=== PATIENT | male | born 1975 | race Caucasian/White ===

== ENCOUNTER 2024-02-20 05:35 | Emergency (ER) | payer OTHER ==
[2024-02-20] MEDS ORDERED: ACETAMINOPHEN 500 MG TAB ONE (06:07)
[2024-02-20] MEDS ORDERED: NA CHLORIDE 0.9% 1,000 ML ONE ×3 (06:08→07:29)
[2024-02-20] MEDS ORDERED: IBUPROFEN 400 MG TAB ONE (06:08)
[2024-02-20] MEDS ORDERED: METOCLOPRAMIDE 10 MG/2mL INJ ONE (06:22)
[2024-02-20 06:31] LABS: Absolute Lymphocytes (CBC) 0.4 K/uL (0.7-4.9); Absolute Monocytes 1.1 K/uL (0.1-1.3); Absolute Neutrophil 20.6 K/uL (1.8-8.0); Basophils % 0.2 % (0-1.3); Hemoglobin 18.2 g/dL (13.6-17.9); Lymphocytes % 1.8 % (15.3-44.8); MCH 30.7 pg (27.0-35.0); MCHC 34.3 g/dL (32.0-36.0); MCV 89.5 fL (80-100); MPV 7.8 fL (7.6-11.3); Monocytes % 4.9 % (3.3-12.3); Neutrophils % 93.1 % (41.7-73.7); Platelets 306 thou/uL (152-406); RBC Red Blood Cell Count 5.93 M/uL (4.33-5.43); Red Cell Distribution Width 13.6 % (12.1-15.2)
[2024-02-20 06:34] LABS: SARS-CoV-2 Antigen CONTROL BLUE LINE VIS/BG OK; SARS-CoV-2 Antigen Rapid Res Negative (Negative)
[2024-02-20 06:39] LABS: Albumin 3.6 g/dL (3.4-5.0); Albumin/Globulin Ratio 0.9 (1.1-1.8); Bilirubin Total 3.4 mg/dL (0.2-1.0); Globulin 3.8 g/dL (2.3-3.5); Protein, Total 7.4 g/dL (6.4-8.2)
--- NOTE | 2024-02-20 06:40 | RAD REPORT ---
EXAM: XR Chest, 1 View CLINICAL HISTORY: The patient is 48 years old and is Male; Shortness of breath. TECHNIQUE: Single view of the chest. COMPARISON: No relevant prior studies available. FINDINGS: Lungs: No pulmonary vascular congestion or consolidation. Pleural space: Unremarkable. No pneumothorax. Heart: Unremarkable. No cardiomegaly. Mediastinum: Unremarkable. Bones/joints: No acute fracture. Upper abdomen: No free air in the visualized upper abdomen. IMPRESSION: No acute cardiopulmonary process identified. Electronically signed by: Bisi Diana MD 02/20/2024 06:37 AM [facility] [place] Due to temporary technical issues with the [employer] reporting system, reports are being bernice d by the in-house radiologist without review as a courtesy to ensure prompt reporting the interpreting radiologist is fully responsible for the content of the report. Transcribed Date/Time: 02/20/2024 6:39 AM
--- NOTE | 2024-02-20 07:07 | ER ---
Nurse's Notes [facility] Name: Efra Castro Age: 48 yrs Sex: Male : 1975 Arrival Date: 02/20/2024 Time: 05:35 Bed 6 Private MD: Diagnosis: Acute bacterial peritonitis, sepsis;Severe sepsis without septic shock Presentation: 02/19 05:54 Chief complaint: Patient states: NAUSEA, DIARRHEA, FEVER AND ABDOMINAL PAIN BEGINNING dd2 LAST NIGHT. Coronavirus screen: diarrhea, fever, nausea, shortness of breath. Ebola Screen: No symptoms or risks identified at this time. Initial Sepsis Screen: Does the patient meet any 2 criteria? Temp <36.0*C (96.8*F)) or > 38.3*C (100.9*F). HR > 90 bpm. Yes Does the patient have a suspected source of infection? No. Patient's initial sepsis screen is negative. Risk Assessment: Do you want to hurt yourself or someone else? Patient reports no desire to harm self or others. Onset of symptoms is unknown. Care prior to arrival: Medication(s) given: zofran 4 mg. 05:54 Method Of Arrival: Ambulatory dd2 05:54 Acuity: PEG 3 dd2 Triage Assessment: 06:00 General: Appears uncomfortable, Behavior is calm, cooperative, appropriate for age. dd2 Pain: Complains of pain in epigastric area Pain does not radiate. Pain currently is 8 out of 10 on a pain scale. Pain began 1 day ago. EENT: No deficits noted. No signs and/or symptoms were reported regarding the EENT system. Neuro: Pedersen Agitation-Sedation Scale (RASS): 0 - Alert and Calm Level of Consciousness is awake, alert, obeys commands, Oriented to person, place, time, situation, Appropriate for age. Cardiovascular: Patient's skin is warm and dry. Respiratory: Reports shortness of breath at rest on exertion Airway is patent Respiratory effort is even, unlabored, Respiratory pattern is regular, symmetrical, Breath sounds are clear bilaterally. GI: Abdomen is non-distended, Abd is soft X 4 quads Abdomen is tender to palpation in epigastric area Reports diarrhea, epigastric pain, nausea. : No deficits noted. No signs and/or symptoms were reported regarding the genitourinary system. Derm: No deficits noted. No signs and/or symptoms reported regarding the dermatologic system. Musculoskeletal: No deficits noted. No signs and/or symptoms reported regarding the musculoskeletal system. Circulation, motion, and sensation intact. Range of motion: intact in all extremities. Historical: - Allergies: 06:00 No Known Allergies; dd2 - PMHx: 06:00 ADHD; dd2 - PSHx: 06:00 None; dd2 - Immunization history:: Adult Immunizations not up to date, Client reports receiving the 2nd dose of the Covid vaccine, Client reports receiving the 1st dose of the Covid vaccine, Flu vaccine is not up to date. It has been more than one year since last vaccine. - Infectious Disease History:: Denies. - Social history:: Smoking status: Patient denies any tobacco usage or history of. - Family history:: not pertinent. Screenin:02 [facility] ED Fall Risk Assessment (Adult) History of falling in the last 3 months, dd2 including since admission No falls in past 3 months (0 pts) Confusion or Disorientation No (0 pts) Intoxicated or Sedated No (0 pts) Impaired Gait No (0 pts) Mobility Assist Device Used No (0 pt) Altered Elimination No (0 pt) Score/Fall Risk Level 0 - 2 = Low Risk Oriented to surroundings, Maintained a safe environment, Educated pt \T\ family on fall prevention, incl call for assistance when getting out of bed, Assessed \T\ reinforced patient's understanding of fall precautions, Hourly rounding (assess needs \T\ fall precautionary measures) done. Abuse screen: Denies threats or abuse. Nutritional screening: No deficits noted. Tuberculosis screening: No symptoms or risk factors identified. Assessment: 06:02 Reassessment: SEE TRIAGE ASSESSMENT FOR FULL ASSESSMENT. dd2 07:00 General: Appears in no apparent distress. Behavior is calm, cooperative. Pain: rs5 Complains of pain in abdomen Pain currently is 3 out of 10 on a pain scale. Quality of pain is described as aching, Is continuous. Neuro: Level of Consciousness is awake, alert, obeys commands, Oriented to person, place, time, situation. Cardiovascular: Patient's skin is warm and dry. Respiratory: Airway is patent Respiratory effort is even, unlabored, Respiratory pattern is regular, symmetrical. GI: Abdomen is round non-distended, Bowel sounds present X 4 quads. GI: Abd is soft and non tender X 4 quads. Reports diarrhea. : No signs and/or symptoms were reported regarding the genitourinary system. EENT: No signs and/or symptoms were reported regarding the EENT system. 07:00 Derm: Skin is intact, Skin is pink, warm \T\ dry. Musculoskeletal: Range of motion: rs5 intact in all extremities. 08:01 Reassessment: Patient and/or family updated on plan of care and expected duration. Pain rs5 level reassessed. Patient is alert, oriented x 3, equal unlabored respirations, skin warm/dry/pink. 09:15 Reassessment: Patient and/or family updated on plan of care and expected duration. Pain rs5 level reassessed. Patient is alert, oriented x 3, equal unlabored respirations, skin warm/dry/pink. 09:16 Reassessment: failed attempt to call report x2. rs5 09:24 Reassessment: failed attempt to call report x2, charge nurse notified . rs5 09:30 Reassessment: Patient and/or family updated on plan of care and expected duration. Pain rs5 level reassessed. Patient is alert, oriented x 3, equal unlabored respirations, skin warm/dry/pink. successfully attempt to call report . Vital Signs: 05:54 BP 117 / 76; Pulse 109; Resp 14; Temp 101.7(O); Pulse Ox 95% on R/A; Weight 99.79 kg; dd2 Height 6 ft. 2 in. ; Pain 8/10; 06:35 BP 122 / 76; Pulse 111; Resp 16; Pulse Ox 98% on R/A; dd2 07:42 BP 131 / 69; Pulse 98; Resp 17; Temp 100.2(O); Pulse Ox 94% on R/A; rs5 09:15 BP 131 / 86; Pulse 88; Resp 17; Temp 98.6(O); Pulse Ox 97% ; rs5 09:56 BP 131 / 86; Pulse 92; Resp 15; Pulse Ox 97% ; ko1 05:54 Body Mass Index 28.25 (99.79 kg, 187.96 cm) dd2 05:54 Pain Scale: Adult dd2 [place] Coma Score: 06:02 Eye Response: spontaneous(4). Motor Response: obeys commands(6). Verbal Response: dd2 oriented(5). Total: 15. 06:13 Eye Response: spontaneous(4). Motor Response: obeys commands(6). Verbal Response: sp4 oriented(5). Total: 15. ED Course: 05:38 Patient arrived in ED. gm2 05:57 Cortes Kuo MD is Attending Physician. vc1 06:00 Triage completed. dd2 06:00 Arm band placed on right wrist. Patient placed in an exam room, on a stretcher, on dd2 pulse oximetry. 06:02 Patient has correct armband on for positive identification. Bed in low position. Call dd2 light in reach. Side rails up X2. Client placed on continuous cardiac and pulse oximetry monitoring. NIBP monitoring applied. Door closed. Noise minimized. Pillow given. Verbal reassurance given. 06:02 No provider procedures requiring assistance completed. Initial lab(s) drawn, by ED dd2 staff, sent to lab. COVID swab sent to lab. Flu and/or RSV swab sent to lab. Inserted saline lock: 20 gauge in right antecubital area, using aseptic technique. Blood collected. Flushed with 10 mL NS. Patient maintains SpO2 saturation greater than 95% on room air. 06:06 Flu Sent. dd2 06:06 SARS RAPID Sent. dd2 06:06 CBC with Diff Sent. dd2 06:06 CMP Sent. dd2 06:06 Lipase Sent. dd2 06:19 CXR XRAY In Process Unspecified. EDMS 06:24 Provided Education on: CALL LIGHT, MEDICATION, RADIOLOGY/LABS. dd2 06:55 US Abdomen Limited In Process Unspecified. EDMS 06:57 initiated a transfer with Giovanni from the [facility]. eb 07:21 First set of blood cultures drawn Second set of blood cultures drawn by me. kb4 07:26 Dewayne Jurado, RN is Primary Nurse. rs5 07:29 Inserted saline lock: 20 gauge in left antecubital area, using aseptic technique. Blood kb4 collected. Flushed with 10 mL NS. 07:30 Repeat lab(s) drawn. by va. kb4 07:30 Blood Culture Adult (2) Sent. kb4 07:35 Attending Physician role handed off by Cortes Kuo MD rn 07:35 Praveen Wynn MD is Attending Physician. rn 08:52 connected the hospitalist bonding machine setter for [facility] with Dr. Kignsley soliz for patient transfer consultation. 08:52 administrative approval given by Giovanni Umanzor Rn/ patient has been accepted to [facility] room 209/ Dr. Jaime Merritt has accepted the patient in transfer/ report to be called to [phone]. 09:56 Patient transferred, IV remains in place. ko1 Administered Medications: 06:12 Drug: NS 0.9% IV 1000 ml IV at 1000 ml once; to be given as a bolus over 60 minutes dd2 Route: IV; Rate: 1000 ml; Site: right antecubital; 06:27 Follow up: Response: No adverse reaction dd2 07:20 Follow up: Response: No adverse reaction; IV Status: Completed infusion; IV Intake: ko1 1000ml 06:13 Drug: Ibuprofen PO 800 mg PO once Route: PO; dd2 06:45 Follow up: Response: No adverse reaction dd2 06:45 Follow up: Response: No adverse reaction ay 06:13 Drug: Acetaminophen PO 1000 mg PO once Route: PO; dd2 06:45 Follow up: Response: No adverse reaction ay 06:45 Follow up: Response: No adverse reaction dd2 06:23 Drug: metoCLOPramide IVP 10 mg IVP once; over 1 to 2 minutes Route: IVP; Site: right dd2 antecubital; 06:38 Follow up: Response: No adverse reaction dd2 06:45 Follow up: Response: No adverse reaction ay 06:41 Drug: NS 0.9% IV 1000 ml IV at 1 bolus Per protocol; to be given as a bolus over 60 ay minutes Route: IV; Rate: 1 bolus; Site: right antecubital; 07:44 Follow up: Response: No adverse reaction rs5 07:45 Follow up: Response: No adverse reaction; IV Status: Completed infusion; IV Intake: ko1 1000ml 07:41 Drug: Cefepime IVPB 2 grams IVPB at 200 ml/hr once over 30 mins; (mix in NS 100 mL) rs5 Route: IVPB; Rate: 200 ml/hr; Infused Over: 30 mins; Site: left antecubital; 08:12 Follow up: Response: No adverse reaction; IV Status: Completed infusion; IV Intake: ko1 100ml 07:41 Drug: NS 0.9% IV 1000 ml IV at 250 ml/hr Per protocol; to be given as a bolus over 60 rs5 minutes Route: IV; Rate: 250 ml/hr; Site: left antecubital; 09:00 Follow up: Response: No adverse reaction; IV Status: Completed infusion; IV Intake: ko1 1000ml 07:41 Drug: NS 0.9% IV 1000 ml IV at 1 bolus Per protocol; to be given as a bolus over 60 rs5 minutes Route: IV; Rate: 1 bolus; Site: left antecubital; 09:30 Follow up: Response: No adverse reaction; IV Status: Completed infusion; IV Intake: ko1 1000ml 08:14 Drug: vancoMYCIN IVPB 2 grams IVPB at calculated rate once Route: IVPB; Rate: rs5 calculated rate; Site: left antecubital; 09:58 Follow up: Response: No adverse reaction; IV Status: Completed infusion; IV Intake: ko1 200ml Medication: 06:02 VIS not applicable for this client. dd2 Intake: 07:20 IV: 1000ml; Total: 1000ml. ko1 07:45 IV: 1000ml; Total: 2000ml. ko1 08:12 IV: 100ml; Total: 2100ml. ko1 09:00 IV: 1000ml; Total: 3100ml. ko1 09:30 IV: 1000ml; Total: 4100ml. ko1 09:58 IV: 200ml; Total: 4300ml. ko1 Outcome: 07:06 ER care complete, transfer ordered by sp4 10:00 Transferred by ground EMS to [facility], Transfer form completed. ko1 X-rays sent w/ patient. 10:00 Condition: stable 10:00 Instructed on the need for transfer, 10:01 Patient left the ED. ko1 Signatures: Dispatcher [employer] EDMS Praveen Wynn MD MD rn Botello, Elizabeth eb Calcote, Vanessa, RN RN vc1 Kary Murray RN RN ko1 Dewayne Jurado RN RN rs5 Cortes Kuo MD MD sp4 Kristen Rodriguez gm2 NGUYỄN GUZMAN RN RN dd2 Clement Caballero RN RN ay Bowen, Kayla kb4
--- NOTE | 2024-02-20 07:07 | EDPHYS ---
Physician Documentation [facility] Name: Efra Castro Age: 48 yrs Sex: Male : 1975 Arrival Date: 02/20/2024 Time: 05:35 Bed 6 Private MD: ED Physician Praveen Wynn HPI: 02/19 06:11 This 48 yrs old Male presents to ER via Ambulatory with complaints of sp4 Abdominal Pain, Fever, Diarrhea. 06:13 48-year-old male presents with acute onset of abdominal pain fever and. diarrhea. . sp4 Historical: - Allergies: 06:00 No Known Allergies; dd2 - PMHx: 06:00 ADHD; dd2 - PSHx: 06:00 None; dd2 - Immunization history:: Adult Immunizations not up to date, Client reports receiving the 2nd dose of the Covid vaccine, Client reports receiving the 1st dose of the Covid vaccine, Flu vaccine is not up to date. It has been more than one year since last vaccine. - Infectious Disease History:: Denies. - Social history:: Smoking status: Patient denies any tobacco usage or history of. - Family history:: not pertinent. ROS: 06:13 Constitutional: Positive fever positive abdominal pain positive diarrhea. sp4 06:13 All other systems are negative, Exam: 06:13 Constitutional: This is a well developed, well nourished patient who is awake, alert, sp4 and in no acute distress. Head/Face: Normocephalic, atraumatic. Eyes: Pupils equal round and reactive to light, extra-ocular motions intact. Lids and lashes normal. Conjunctiva and sclera are not injected. Cornea within normal limits. Periorbital areas with no swelling, redness, or edema. ENT: Nares patent. No nasal discharge, no septal abnormalities noted. Tympanic membranes are normal and external auditory canals are clear. Oropharynx with no redness, swelling, or masses, exudates, or evidence of obstruction, uvula midline. Mucous membranes moist. Neck: Trachea midline, no thyromegaly or masses palpated, and no cervical lymphadenopathy. Supple, full range of motion without nuchal rigidity, or vertebral point tenderness. Chest/axilla: Normal chest wall appearance and motion. Nontender with no deformity. No lesions are appreciated. Cardiovascular: Regular rate and rhythm with a normal S1 and S2. No gallops, murmurs, or rubs. Normal PMI, no JVD. No pulse deficits. Respiratory: Lungs have equal breath sounds bilaterally, clear to auscultation and percussion. No rales, rhonchi or wheezes noted. No increased work of breathing, no retractions or nasal flaring. Abdomen/GI: Soft, with normal bowel sounds. No distension or tympany. Positive difffuse tendereness, Positive rebound tenderness lower quadrants Back: No spinal tenderness. No costovertebral tenderness. Skin: Warm, dry with normal turgor. Normal color with no rashes, no lesions, and no evidence of cellulitis. MS/ Extremity: Pulses equal, no cyanosis. Neurovascular intact. Full, normal range of motion. Neuro: Awake and alert, GCS 15, oriented to person, place, time, and situation. Cranial nerves II-XII grossly intact. Motor strength 5/5 in all extremities. Sensory grossly intact. Psych: Awake, alert, with orientation to person, place and time. Behavior, mood, and affect are within normal limits Vital Signs: 05:54 BP 117 / 76; Pulse 109; Resp 14; Temp 101.7(O); Pulse Ox 95% on R/A; Weight 99.79 kg; dd2 Height 6 ft. 2 in. ; Pain 8/10; 06:35 BP 122 / 76; Pulse 111; Resp 16; Pulse Ox 98% on R/A; dd2 07:42 BP 131 / 69; Pulse 98; Resp 17; Temp 100.2(O); Pulse Ox 94% on R/A; rs5 09:15 BP 131 / 86; Pulse 88; Resp 17; Temp 98.6(O); Pulse Ox 97% ; rs5 09:56 BP 131 / 86; Pulse 92; Resp 15; Pulse Ox 97% ; ko1 05:54 Body Mass Index 28.25 (99.79 kg, 187.96 cm) dd2 05:54 Pain Scale: Adult dd2 Mckenzie Coma Score: 06:02 Eye Response: spontaneous(4). Motor Response: obeys commands(6). Verbal Response: dd2 oriented(5). Total: 15. 06:13 Eye Response: spontaneous(4). Motor Response: obeys commands(6). Verbal Response: sp4 oriented(5). Total: 15. MDM: 06:11 Medical Screening Exam initiated sp4 07:03 Differential diagnosis: viral Infection, bacterial infection, bronchitis, pneumonia sp4 UTI, gastroenteritis. Data reviewed: vital signs, nurses notes. 07:03 Consideration of Admission/Observation Escalation of care including sp4 admission/observation considered. Management of patient was discussed with the following: [employer]: [facility] Hospitalist.. Transition of care: After a detail discussion of the patient's case, care is transferred to Praveen Wynn MD. ED course: Patient found to have negative flu test., Patient also have leukocytosis with neutrophilic predominance indicative of acute bacterial infection. Exam revealed positive rebound. At this time there is concern for acute peritonitis secondary to diverticulitis or acute appendicitis. Patient warrants transfer for emergent CT abdomen pelvis with IV contrast.. 07:09 ED course: EXAM: XR Chest, 1 View CLINICAL HISTORY: The patient is 48 years old and is sp4 Male; Shortness of breath. TECHNIQUE: Single view of the chest. COMPARISON: No relevant prior studies available. FINDINGS: Lungs: No pulmonary vascular congestion or consolidation. Pleural space: Unremarkable. No pneumothorax. Heart: Unremarkable. No cardiomegaly. Mediastinum: Unremarkable. Bones/joints: No acute fracture. Upper abdomen: No free air in the visualized upper abdomen. IMPRESSION: No acute cardiopulmonary process identified. Electronically signed by: Bisi Diana MD 02/20/2024 06:37 AM. 07:35 ED course: Patient signed out to ut by Dr. Kuo pending transfer. Patient rn reevaluated by me with mid abdominal tenderness, elevated WBC. I agree patient needs CT to rule out appendicitis/diverticulitis/colitis given fever/nausea/diarrhea.. 09:09 ED course: Patient accepted for transfer to [facility]. rn 02/19 05:57 Order name: CBC with Diff vc1 02/19 05:57 Order name: CMP; Complete Time: 06:49 vc1 02/19 05:57 Order name: Lipase; Complete Time: 06:49 vc1 02/19 05:57 Order name: SARS RAPID; Complete Time: 06:34 vc1 02/19 05:57 Order name: Flu; Complete Time: 06:49 vc1 02/19 06:38 Order name: Urinalysis W/Microscopic sp4 02/19 06:49 Order name: Blood Culture Adult (2) sp4 02/19 06:56 Order name: Lactate w/ 2H reflex if indic.; Complete Time: 08:02 sp4 02/19 06:56 Order name: CRP sp4 02/19 06:57 Order name: TSH sp4 02/19 06:57 Order name: Troponin High Sensitivity sp4 02/19 06:57 Order name: BNP sp4 02/19 06:57 Order name: PT-INR; Complete Time: 08:02 sp4 02/19 09:27 Order name: Manual Differential EDMS 02/19 05:59 Order name: CXR XRAY; Complete Time: 06:49 vc1 02/19 06:38 Order name: US Abdomen Limited; Complete Time: 08:02 sp4 02/19 05:57 Order name: IV Saline Lock; Complete Time: 06:06 vc1 02/19 05:57 Order name: Labs collected and sent; Complete Time: 06:06 vc1 02/19 06:50 Order name: NPO; Complete Time: 07:41 sp4 Administered Medications: 06:12 Drug: NS 0.9% IV 1000 ml IV at 1000 ml once; to be given as a bolus over 60 minutes dd2 Route: IV; Rate: 1000 ml; Site: right antecubital; 06:27 Follow up: Response: No adverse reaction dd2 07:20 Follow up: Response: No adverse reaction; IV Status: Completed infusion; IV Intake: ko1 1000ml 06:13 Drug: Ibuprofen PO 800 mg PO once Route: PO; dd2 06:45 Follow up: Response: No adverse reaction dd2 06:45 Follow up: Response: No adverse reaction ay 06:13 Drug: Acetaminophen PO 1000 mg PO once Route: PO; dd2 06:45 Follow up: Response: No adverse reaction ay 06:45 Follow up: Response: No adverse reaction dd2 06:23 Drug: metoCLOPramide IVP 10 mg IVP once; over 1 to 2 minutes Route: IVP; Site: right dd2 antecubital; 06:38 Follow up: Response: No adverse reaction dd2 06:45 Follow up: Response: No adverse reaction ay 06:41 Drug: NS 0.9% IV 1000 ml IV at 1 bolus Per protocol; to be given as a bolus over 60 ay minutes Route: IV; Rate: 1 bolus; Site: right antecubital; 07:44 Follow up: Response: No adverse reaction rs5 07:45 Follow up: Response: No adverse reaction; IV Status: Completed infusion; IV Intake: ko1 1000ml 07:41 Drug: Cefepime IVPB 2 grams IVPB at 200 ml/hr once over 30 mins; (mix in NS 100 mL) rs5 Route: IVPB; Rate: 200 ml/hr; Infused Over: 30 mins; Site: left antecubital; 08:12 Follow up: Response: No adverse reaction; IV Status: Completed infusion; IV Intake: ko1 100ml 07:41 Drug: NS 0.9% IV 1000 ml IV at 250 ml/hr Per protocol; to be given as a bolus over 60 rs5 minutes Route: IV; Rate: 250 ml/hr; Site: left antecubital; 09:00 Follow up: Response: No adverse reaction; IV Status: Completed infusion; IV Intake: ko1 1000ml 07:41 Drug: NS 0.9% IV 1000 ml IV at 1 bolus Per protocol; to be given as a bolus over 60 rs5 minutes Route: IV; Rate: 1 bolus; Site: left antecubital; 09:30 Follow up: Response: No adverse reaction; IV Status: Completed infusion; IV Intake: ko1 1000ml 08:14 Drug: vancoMYCIN IVPB 2 grams IVPB at calculated rate once Route: IVPB; Rate: rs5 calculated rate; Site: left antecubital; 09:58 Follow up: Response: No adverse reaction; IV Status: Completed infusion; IV Intake: ko1 200ml Disposition Summary: 02/20/24 07:06 Transfer Ordered Notes: Transfer Location: [facility] sp4 Reason: Higher level of care sp4 Condition: Stable sp4 Problem: new sp4 Symptoms: have improved sp4 Accepting Physician: Attending at [facility].(02/20/24 10:01) ko1 Diagnosis - Acute bacterial peritonitis, sepsis sp4 - Severe sepsis without septic shock sp4 Forms: - Medication Reconciliation Form sp4 - SBAR form sp4 Addendum: 09:30 Addendum: Patient's care was transferred to ut by Dr. Kuo after transfer was r n initiated to [facility]. Per report patient was notified of transfer necessity due to elevated WBC, abdominal pain, likely infectious etiology and no CT availability at this hospital. At shift change I went in and spoke with patient, reinforcing the need for transfer and patient agrees and consents to transfer for further workup including CT abdomen pelvis. [facility] Hospitalist initially requested that I speak to general surgeon given patient being transferred for abdominal pain with elevated WBC and no CT scan availability, never spoke with the general surgeon, transfer center called back stating patient was accepted for transfer. Patient ambulatory in ER, pain better controlled and appears better overall. Stable vital signs for transfer.. Signatures: Dispatcher [employer] EDMS Praveen Wynn MD MD rn Calcote, Vanessa RN RN vc1 Kary Murray RN RN ko1 Dewayne Jurado RN RN rs5 Cortes Kuo MD MD sp4 NGUYỄN GUZMAN RN RN dd2 Clement Caballero, RN RN ay Corrections: (The following items were deleted from the chart) 05:58 05:58 CBC+H.LAB.BRZ ordered. EDMS EDMS 05:58 05:58 COMPREHENSIVE METABOLIC PANEL+C.LAB.BRZ ordered. EDMS EDMS 05:58 05:58 LIPASE+C.LAB.BRZ ordered. EDMS EDMS 05:58 05:58 SARS-COV-2 Antigen Rapid+I.LAB.BRZ ordered. EDMS EDMS 05:58 05:58 Influenza Screen (A \T\ B)+BA.LAB.BRZ ordered. EDMS EDMS 06:38 06:38 Abdomen Limited+US.RAD.BRZ ordered. EDMS EDMS 06:38 06:38 Urinalysis W/Microscopic+U.LAB.BRZ ordered. EDMS EDMS 07:09 06:13 Constitutional: This is a well developed, well nourished patient who is awake, sp4 alert, and in no acute distress. Head/Face: Normocephalic, atraumatic. Eyes: Pupils equal round and reactive to light, extra-ocular motions intact. Lids and lashes normal. Conjunctiva and sclera are not injected. Cornea within normal limits. Periorbital areas with no swelling, redness, or edema. ENT: Nares patent. No nasal discharge, no septal abnormalities noted. Tympanic membranes are normal and external auditory canals are clear. Oropharynx with no redness, swelling, or masses, exudates, or evidence of obstruction, uvula midline. Mucous membranes moist. Neck: Trachea midline, no thyromegaly or masses palpated, and no cervical lymphadenopathy. Supple, full range of motion without nuchal rigidity, or vertebral point tenderness. Chest/axilla: Normal chest wall appearance and motion. Nontender with no deformity. No lesions are appreciated. Cardiovascular: Regular rate and rhythm with a normal S1 and S2. No gallops, murmurs, or rubs. Normal PMI, no JVD. No pulse deficits. Respiratory: Lungs have equal breath sounds bilaterally, clear to auscultation and percussion. No rales, rhonchi or wheezes noted. No increased work of breathing, no retractions or nasal flaring. Abdomen/GI: Soft, with normal bowel sounds. No distension or tympany. No guarding or rebound. No evidence of tenderness throughout. Back: No spinal tenderness. No costovertebral tenderness. Skin: Warm, dry with normal turgor. Normal color with no rashes, no lesions, and no evidence of cellulitis. MS/ Extremity: Pulses equal, no cyanosis. Neurovascular intact. Full, normal range of motion. Neuro: Awake and alert, GCS 15, oriented to person, place, time, and situation. Cranial nerves II-XII grossly intact. Motor strength 5/5 in all extremities. Sensory grossly intact. Psych: Awake, alert, with orientation to person, place and time. Behavior, mood, and affect are within normal limits sp4 10:01 07:06 Attending at [facility]. sp4 ko1
[2024-02-20] MEDS ORDERED: NA CHLORIDE 0.9% 250 ML ONE (07:29)
[2024-02-20] MEDS ORDERED: NA CHLORIDE 0.9% 100 ML ONE (07:29)
[2024-02-20] MEDS ORDERED: VANCOMYCIN 1 GM/VIAL ONE (07:29)
[2024-02-20] MEDS ORDERED: CEFEPIME 2 GM VIAL ONE (07:30)
[2024-02-20] MEDS ORDERED: CEFAZOLIN SODIUM 2 GM/VIAL ONE (07:30)
[2024-02-20 07:45] LABS: Protime INR 1.26
--- NOTE | 2024-02-20 08:00 | RAD REPORT ---
EXAMINATION: US Abdomen Exam Limited CLINICAL HISTORY: [facility] MAIN N ABD PAIN Bed Name: 6 COMPARISON: None. TECHNIQUE: Limited upper abdominal grayscale and color flow sonographic images. FINDINGS: Gallbladder: Normal. Reportedly negative sonographic Horta sign. Bile ducts: No intrahepatic or extrahepatic biliary dilatation. Common bile duct measures 3 mm. Liver: Visualized portions of the liver demonstrate normal echogenicity with no suspicious findings. Fluid: No ascites. IMPRESSION: No abnormalities on right upper quadrant ultrasound.
[2024-02-20 08:05] LABS: C-Reactive Protein 84.9 mg/L (<3.00); Thyroid Stimulating Hormone 0.398 uIU/mL (0.358-3.740); Troponin High Sensitivity 4.4 pg/mL (<58.9)
[2024-02-20 09:27] LABS: Band Neutrophils 14 % (0-1); Differential Total Cells Count 100; Lymphocytes 1 % (15-42); Monocytes 3 % (0-10); Platelet Estimate ADEQ; Platelets, Giant FEW PRESENT; Segmented Neutrophils 82 % (40-80)
[2024-02-20 09:28] LABS: Blood Morphology Comment NOT SEEN (NOT SEEN)
[2024-02-20 10:15] LABS: Sqamous Epithelial <5 /HPF (None Seen); Urine Bacteria None Seen /HPF (<20); Urine Crystals Unidentified Few /HPF (None Seen); Urine Culture Reflex Order NOT NEEDED; Urine Micro Reflex YN NO BILL MICROSCOPIC; Urine Mucus 3+ /HPF (None Seen); Urine RBC <5 /HPF (None Seen); Urine WBC <5 /HPF (<5); Urine Yeast (Budding) Trace /HPF (None Seen)
[2024-02-20 10:17] LABS: Urine Color Yellow (Yellow)
[2024-02-20 10:18] LABS: Specific Gravity 1.025 (1.005-1.030); Urine Bilirubin 1+ (Negative); Urine Blood Negative (Negative); Urine Clarity Turbid (Clear); Urine Glucose Negative (Negative); Urine Ketones 1+ (Negative)
[2024-02-20 10:20] LABS: Urine Nitrite Negative (Negative); Urine Protein 1+ (Negative); Urine Urobilinogen Normal (Normal)
[2024-02-20 10:33] VITALS: BP 131/86; TEMP 98.6; O2SAT 97
== END 2024-02-20 10:01 | disposition short-term general hospital (02) ==
LOC: ER 05:35
DX: K65.2 Spontaneous bacterial peritonitis (principal); R65.21 Severe sepsis with septic shock; Z11.52 Encounter for screening for COVID-19
CPT/HCPCS: 96365; 96367; 96361; 87040 ×2; 85025; 81001; 36415; 85610; 83605; 84443; 84484; 83690; 80053; 83880; 86140; 87804 ×2; 71045; 76705; 96375; 99285; 87811; J2765; J0692; J7050; J7030 ×3